=== PATIENT | male | born 1980 | race American Indian/Alaskan Native ===

== ENCOUNTER 2016-11-20 13:09 | Emergency (ER) | payer SELFPAY ==
[2016-11-20] MEDS ORDERED: TORADOL IM ONE (16:37)
--- NOTE | 2016-11-20 17:32 | Emergency Department Report ---
Upper Extremity - HPI Chief Complaint: Shoulder Injury Stated Complaint: Right shoulder pain Upper Extremity: Right Shoulder Occurred When: 3 Days Mechanism: Unsure Severity: severe Symptoms: Yes Pain with Movement, Yes Limited Range of Movement, Yes Weakness, No Deformity, No Numbness, No Swelling, No Bruising/Ecchymosis, No Laceration or Abrasion Other History: 36 y/o M presents with R shoulder pain for the past 3 days. 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 Pt does not recall any direct trauma to the site. Pt states that the pain increases with movement of the R shoulder, especially with overhead movement. Pt has been taking OTC ibuprofen with no relief. Pt denies any abdominal pain, nausea, vomiting, diarrhea, constipation, SOB, numbness, tingling, chest pain, jaw pain, or left arm pain. No hx of any other comorbid illness. Allergies to erythryomycin and PCN. ED Review of Systems ROS: Stated complaint: Right shoulder pain Other details as noted in HPI Constitutional: denies: chills, fever Eyes: denies: eye pain, eye discharge, vision change ENT: denies: ear pain, throat pain Respiratory: denies: cough, shortness of breath, wheezing Cardiovascular: denies: chest pain, palpitations Endocrine: no symptoms reported Gastrointestinal: denies: abdominal pain, nausea, vomiting, diarrhea, constipation Genitourinary: denies: urgency, dysuria Musculoskeletal: other (reports to R shoulder pain, that increases with movement and overhead movements) Skin: other (no redness, swelling, or obvious defomrity noted). denies: rash, lesions Neurological: denies: headache, weakness, paresthesias Psychiatric: denies: anxiety, depression ED Past Medical Hx - Past Medical History Hx Asthma: Yes - Social History Smoking Status: Current Every Day Smoker - Medications Home Medications: Home Medications Medication Instructions Recorded Confirmed Last Taken Type Cyclobenzaprine HCl [Flexeril 5 MG 5 mg PO TID PRN #15 tab 11/20/16 Unknown Rx TAB] Ibuprofen [Motrin 800 MG tab] 800 mg PO Q8HR PRN #15 tablet 11/20/16 Unknown Rx amLODIPine [Norvasc] 5 mg PO DAILY #30 tab 11/20/16 Unknown Rx Upper Extremity Exam - Exam General: Vital signs noted. No distress. Alert and acting appropriately. Shoulder Exam: Yes Shoulder Tenderness (active and passive-increased pain with abduction, abbduction, unable to do full flexion of the joint, license clerk strength full, strength mildly limited of the affected extremity), Yes Clavicle Tenderness (pulses are full of the affected arm, sensation is intact), Yes AC Joint Tenderness, No Normal Range of Motion in Shoulder, No Shoulder Deformity Arm Exam: No Arm/Humerus Tenderness, No Arm Deformity Elbow: Yes Normal Range of Motion in Elbow, No Elbow Tenderness, No Elbow Deformity Forearm: No Forearm Tenderness, No Forearm Deformity, No Pain with Pronation, No Pain with Supination Wrist: Yes Normal ROM in Wrist, No Wrist Tenderness, No Wrist Deformity, No Snuffbox Tenderness, No Pain with Axial Thumb Compression Hand: No Hand Tenderness, No Hand Deformity, No Digit Tenderness, No Normal ROM in Digit(s), No Digit(s) Deformity, No Tendon Dysfunction CMS Exam: Yes Normal Distal Pulses, Yes Normal Capillary Refill, Yes Normal Distal Sensation, No Broken Skin ED Course Vital Signs 11/20/16 14:19 Temperature 98.3 F Pulse Rate 60 Respiratory 16 Rate Blood Pressure 125/89 Blood Pressure 125/89 [Left] O2 Sat by Pulse 98 Oximetry ED Medical Decision Making - Radiology Data Radiology results: image reviewed The right shoulder xray was unremarkable. - Medical Decision Making sudden onset of R shoulder pain, occupation of a cook. Pt states that he lifts and moves alot of heavy material on a daily. No reported trauma to the site. Xray was unremarkable. Toradol 30 mg was given for the pain today in the ED. I have given patient Ibuprofen and Flexeril for home at this time. I have also started him on a low dose HTN medication, educated him to monitor his levels at home and follow-up with PCP. No dizziness, chest pain, or vision changes were reported by the patient. Pt educated that NSAIDs can also cause an increase in BP and to be advised, and if so to stop the ibuprofen and to take Tylenol instead. Pt denied any chest, pain, jaw pain, left sided arm pain, numbness, or tingling. Pt's BP was run by Dr. Vickers, he states that pt is okay to go at this time. pt was discharged in no resp distress, alert and oriented, and in stable condition. Critical care attestation.: If time is entered above; I have spent that time in minutes in the direct care of this critically ill patient, excluding procedure time. ED Disposition Clinical Impression: Muscle strain, Elevated blood pressure reading Shoulder pain, right Qualifiers: Chronicity: acute Qualified Code(s): M25.511 - Pain in right shoulder Disposition: DC-01 TO HOME OR SELFCARE Is pt being admited?: No Does the pt Need Aspirin: No Condition: Stable Instructions: RICE Therapy (ED) Additional Instructions: Please take the medications given to you as needed for the pain. Please be advised that the muscle relaxant may cause drowsiness, do not take if operating heavy machinery or at work. Please follow-up with PCP within 3-5 days. Please return to the ER immediately with any acute worsening of symptoms. RICE therapy = rest, ice, compress, and elevate the affected joint. Pt educated to monitor his BP readings, he has been educated that Ibuprofen can elevate the BP. He was advised to monitor his BP levels, if running high advised to stop the Ibuprofen and try tylenol instead. Prescriptions: amLODIPine [Norvasc] 5 mg PO DAILY #30 tab Cyclobenzaprine HCl [Flexeril 5 MG TAB] 5 mg PO TID PRN #15 tab PRN Reason: pain Ibuprofen [Motrin 800 MG tab] 800 mg PO Q8HR PRN #15 tablet PRN Reason: pain Referrals: [facility] [Outside] - 3-5 Days [facility] [Outside] - 3-5 Days PRIMARY CARE, [Primary Care Provider] - 3-5 Days SAW CAVAZOS MD [Staff Physician] - 3-5 Days Forms: Work/School Release Form(ED)
--- NOTE | 2016-11-20 18:10 | XRay Report ---
FINAL REPORT PROCEDURE: XR SHOULDER 2+V RT Right shoulder series TECHNIQUE: Right shoulder radiographs including AP views in internal and external rotation and abduction. CPT 35615 HISTORY: shoulder pain COMPARISON: No prior studies are available for comparison. FINDINGS: Fracture (s) and/or Dislocation(s): None . Joint space(s): Normal . Soft tissues: Normal . Bone mineralization: Normal . Foreign bodies: None . IMPRESSION: Negative examination
[2016-11-20 18:52] VITALS: BP 146/98
[2016-11-20] MEDS ORDERED: NORVASC PO ONE (18:59)
== END 2016-11-20 19:06 | disposition home or self-care (01) ==
LOC: ED 13:09
DX: S46.911A Strain of unspecified muscle, fascia and tendon at shoulder and upper arm level, right arm, initial encounter (principal); F17.200 Nicotine dependence, unspecified, uncomplicated; X50.0XXA Overexertion from strenuous movement or load, initial encounter; X50.9XXA Other and unspecified overexertion or strenuous movements or postures, initial encounter; Y93.89 Activity, other specified; Y92.89 Other specified places as the place of occurrence of the external cause; Y99.8 Other external cause status; Z88.0 Allergy status to penicillin; Z88.1 Allergy status to other antibiotic agents
CPT/HCPCS: 73030; 96372; 99283; J1885

== ENCOUNTER 2016-11-26 21:13 | Emergency (ER) | payer SELFPAY ==
[2016-11-26 22:36] VITALS: BP 130/93
[2016-11-27] MEDS ORDERED: MOTRIN ONE (00:06)
[2016-11-27] MEDS ORDERED: MOTRIN PO ONE (00:08)
--- NOTE | 2016-11-27 01:38 | XRay Report ---
FINAL REPORT EXAM: XR SHOULDER 2+V RT HISTORY: Rt shoulder pain, F/U XRay, get report COMPARISON: November 20, 2016.. FINDINGS: Three views of the right shoulder obtained. Bony structures are intact. Joint spaces are preserved. No acute fracture dislocation. IMPRESSION: No acute bony abnormality.
== END 2016-11-27 05:00 | disposition left against medical advice (07) ==
LOC: ED 21:13
DX: M25.511 Pain in right shoulder (principal)